=== PATIENT | male | born 1930 | race Caucasian/White ===

== ENCOUNTER → 2016-07-30 | Outpatient (CLI) | payer MEDICARE, OTHER ==
[2016-07-30 12:28] LABS: Basophils # (auto) 0.1 uL; Eosinophils # (auto) 0.2 uL; Eosinophils % (auto) 3.7 % (0.0-7.0); Hematocrit 44.8 % (41.0-53.0); Hemoglobin 14.8 g/dL (13.5-17.5); Lymphocytes # (auto) 1.8 uL; Lymphocytes % (auto) 27.5 % (10.0-50.0); Mean Corpuscular Volume 96.9 fL (80.0-100.0); Mean Platelet Volume 8.6 fL (7.4-10.4); Monocytes # (auto) 0.7 uL; Monocytes % (auto) 11.1 % (0.0-12.0); Neutrophils # (auto) 3.7 uL; Neutrophils % (auto) 56.7 % (37.0-80.0); Platelet Count (auto) 249 10^3/uL (140-450); Red Cell Distribution Width 12.7 % (11.6-16.0); Urine Bilirubin Negative (Negative); Urine Blood Negative /uL (Negative); Urine Color Yellow (Yellow); Urine Glucose Normal (Normal); Urine Ketone Negative (Negative); Urine Nitrite Negative (Negative); Urine Urobilinogen Normal (Negative); White Blood Cell 6.6 10^3/uL (4.4-10.8)
[2016-07-30 13:20] LABS: BUN/Creatinine Ratio 16.3; Bilirubin, Direct 0.3 mg/dL (0-0.2); Bilirubin, Total 1.3 mg/dL (0.2-1.0); Calcium 8.9 mg/dL (8.5-10.1); Potassium 4.2 mmol/L (3.5-5.1); Total Protein 7.7 g/dL (6.4-8.2)
== END | disposition home or self-care (01) ==
LOC: LAB 08:23
PROVIDERS: ATTEND Internal Medicine Cardiovascular Disease
DX: I10 Essential (primary) hypertension (principal); E78.00 Pure hypercholesterolemia, unspecified; K74.1 Hepatic sclerosis; E11.9 Type 2 diabetes mellitus without complications; R97.20 Elevated prostate specific antigen [PSA]; R53.81 Other malaise; E03.9 Hypothyroidism, unspecified; D64.9 Anemia, unspecified; E55.9 Vitamin D deficiency, unspecified; N39.0 Urinary tract infection, site not specified
CPT/HCPCS: 36415; 80048; 80061; 80076; 81003; 82306; 83036; 84153; 84403; 84443; 85025; 85049

== ENCOUNTER → 2016-07-31 | Outpatient (CLI) | payer MEDICARE, OTHER | END | disposition home or self-care (01) | LOC: Rad HDHVI 11:36 | PROVIDERS: ATTEND Internal Medicine Cardiovascular Disease | DX: G31.89 Other specified degenerative diseases of nervous system (principal); I67.2 Cerebral atherosclerosis; I99.8 Other disorder of circulatory system; S09.8XXA Other specified injuries of head, initial encounter; X58.XXXA Exposure to other specified factors, initial encounter; Y93.89 Activity, other specified; Y92.89 Other specified places as the place of occurrence of the external cause; Y99.8 Other external cause status | CPT/HCPCS: 70450 ==

== ENCOUNTER 2016-08-05 12:19 | Emergency (ER) | payer MEDICARE, OTHER ==
[~2016-08-05] VITALS: Ht 182.9 cm; Wt 84.8 kg
[2016-08-05 19:00] VITALS: BP 136/84
== END 2016-08-05 19:46 | disposition home or self-care (01) ==
LOC: ER 12:22
DX: S09.90XA Unspecified injury of head, initial encounter (principal); I10 Essential (primary) hypertension; R51 Headache; Z88.0 Allergy status to penicillin; W19.XXXA Unspecified fall, initial encounter; Y93.89 Activity, other specified; Y92.89 Other specified places as the place of occurrence of the external cause; Y99.8 Other external cause status
CPT/HCPCS: 70450; 70480

== ENCOUNTER → 2016-12-16 | Outpatient (CLI) | payer MEDICARE, OTHER | END | disposition home or self-care (01) | LOC: Rad HDHVI 12:18 | PROVIDERS: ATTEND Internal Medicine Cardiovascular Disease | DX: M48.02 Spinal stenosis, cervical region (principal); M12.88 Other specific arthropathies, not elsewhere classified, other specified site | CPT/HCPCS: 72050 ==

== ENCOUNTER → 2017-02-11 | Outpatient (CLI) | payer MEDICARE ==
[2017-02-11 12:45] LABS: BUN/Creatinine Ratio 15.3; Magnesium 2.4 mg/dL (1.6-2.6); Potassium 4.2 mmol/L (3.5-5.1)
== END | disposition home or self-care (01) ==
LOC: LAB 09:00
PROVIDERS: ATTEND Internal Medicine Cardiovascular Disease
DX: I10 Essential (primary) hypertension (principal); E83.42 Hypomagnesemia
CPT/HCPCS: 36415; 80048; 83735

== ENCOUNTER → 2017-05-02 | Outpatient (CLI) | payer MEDICARE | END | disposition home or self-care (01) | LOC: Rad HDHVI 12:44 | PROVIDERS: ATTEND Internal Medicine Cardiovascular Disease | DX: I35.1 Nonrheumatic aortic (valve) insufficiency (principal) | CPT/HCPCS: 93306 ==

== ENCOUNTER → 2017-05-06 | Outpatient (CLI) | payer MEDICARE ==
[~2017-05-06] VITALS: Ht 180.3 cm; Wt 78.0 kg
[2017-05-06 13:10] LABS: Albumin 3.5 g/dL (3.4-5.0); BUN/Creatinine Ratio 12.9; Calcium 8.7 mg/dL (8.5-10.1)
== END | disposition home or self-care (01) ==
LOC: Rad HDHVI 08:29
PROVIDERS: ATTEND Internal Medicine Cardiovascular Disease
DX: I10 Essential (primary) hypertension (principal); E03.9 Hypothyroidism, unspecified; R97.0 Elevated carcinoembryonic antigen [CEA]; E78.00 Pure hypercholesterolemia, unspecified
CPT/HCPCS: 36415; 78452; 80053; 82378; 84439; 84443; 84480; 93017; 96374; A9500

== ENCOUNTER → 2017-06-19 | Outpatient (CLI) | payer MEDICARE ==
[2017-06-19 12:33] LABS: Basophils # (auto) 0.2 uL; Basophils % (auto) 2.7 % (0.0-2.0); Eosinophils # (auto) 0.3 uL; Eosinophils % (auto) 4.3 % (0.0-7.0); Hematocrit 43.3 % (41.0-53.0); Hemoglobin 14.7 g/dL (13.5-17.5); Lymphocytes # (auto) 2.1 uL; Lymphocytes % (auto) 27.4 % (10.0-50.0); Mean Corpuscular Hemoglobin 33.6 pg (28.0-32.0); Mean Corpuscular Volume 98.8 fL (80.0-100.0); Mean Platelet Volume 8.3 fL (6.9-10.8); Monocytes # (auto) 0.5 uL; Monocytes % (auto) 6.8 % (0.0-12.0); Neutrophils # (auto) 4.6 uL; Neutrophils % (auto) 58.8 % (37.0-80.0); Nucleated Red Blood Cells % 0.1 %; Platelet Count (auto) 249 10^3/uL (140-450); Red Cell Distribution Width 12.7 % (11.8-14.3); White Blood Cell 7.8 10^3/uL (4.4-10.8)
[2017-06-19 12:59] LABS: BUN/Creatinine Ratio 13.7; Calcium 8.7 mg/dL (8.5-10.1); Potassium 3.8 mmol/L (3.5-5.1)
[2017-06-19 13:02] LABS: INR 0.99 (0.9-1.15); Partial Thromboplastin Time 25.9 sec (22.64-33.71); Prothrombin Time 10.8 sec (9.37-12.3)
== END | disposition home or self-care (01) ==
LOC: LAB 09:24
PROVIDERS: ATTEND Internal Medicine Cardiovascular Disease
DX: Z01.812 Encounter for preprocedural laboratory examination (principal); I10 Essential (primary) hypertension; D64.9 Anemia, unspecified; R79.1 Abnormal coagulation profile
CPT/HCPCS: 36415; 80048; 85025; 85610; 85730

== ENCOUNTER → 2017-09-17 | Outpatient (CLI) | payer MEDICARE | END | disposition home or self-care (01) | LOC: LAB 08:47 | PROVIDERS: ATTEND Internal Medicine Cardiovascular Disease | DX: C61 Malignant neoplasm of prostate (principal); E29.1 Testicular hypofunction | CPT/HCPCS: 36415; 84153; 84403 ==

== ENCOUNTER → 2019-04-13 | Outpatient (CLI) | payer MEDICARE ==
[2019-04-13 12:42] LABS: Prostate Specific Antigen 2.67 ng/mL (0.0-4.0)
[2019-04-13 12:43] LABS: Carcinoembryonic Antigen 2.89 ng/mL (<5.0 OR =)
== END | disposition home or self-care (01) ==
LOC: LAB 09:58
PROVIDERS: ATTEND Internal Medicine
DX: C61 Malignant neoplasm of prostate (principal); R97.0 Elevated carcinoembryonic antigen [CEA]
CPT/HCPCS: 82378; 84153